=== PATIENT | male | born 1990 ===

== ENCOUNTER 2024-02-05 15:52 | Outpatient (REF) | payer OTHER, SELFPAY ==
[2024-02-05 22:03] LABS: ALT 85 U/L (16-63); AST 48 U/L (15-37); Albumin 3.9 g/dL (3.4-5.0); Alkaline Phosphatase 99 U/L (46-116); BUN 16 mg/dL (7-18); Bilirubin, Total 0.5 mg/dL (0.2-1.0); CREATININE 1.2 mg/dL (0.70-1.30); Calcium 9.6 mg/dL (8.5-10.1); Calculated LDL 94 mg/dL (<100); Chloride 104 mmol/L (98-107); Cholesterol 181 mg/dL (<200); Estimated GFR 81.89 (mL/min/1.73m2); Glucose 95 mg/dL (74-106); HDL Cholesterol 35 mg/dL (40-60); Potassium 4.3 mmol/L (3.5-5.1); Sodium 140 mmol/L (136-145); Triglyceride 260 mg/dL (<150)
[2024-02-06 19:06] LABS: HIV-1/2 Ag & Ab Screen Negative (Negative)
[2024-02-06 20:56] LABS: Hepatitis C Ab w Rflx HCV PCR Negative (Negative)
== END 2024-02-05 15:53 | disposition home or self-care (01) ==
LOC: NCHCN 15:52
PROVIDERS: Visit Provider Nurse Practitioner Family
DX: Z00.00 Encounter for general adult medical examination without abnormal findings (principal); Z13.220 Encounter for screening for lipoid disorders; Z11.4 Encounter for screening for human immunodeficiency virus [HIV]; Z11.59 Encounter for screening for other viral diseases; Z13.228 Encounter for screening for other metabolic disorders
CPT/HCPCS: 80053; 80061; 86803; 87389